=== PATIENT | female | born 1955 | race Hispanic/Latino ===

== ENCOUNTER 2021-12-26 18:19 | Emergency (ER) | payer OTHER, MEDICARE ==
[~2021-12-26] VITALS: Ht 162.6 cm; Wt 89.4 kg
[2021-12-26 18:53] LABS: BASOPHILS % (AUTO) 0.3 % (0.0-5.0); HEMATOCRIT 38.1 % (36-48); LYMPHOCYTES % (AUTO) 3.4 % (21.0-51.0); MEAN CORPUSCULAR HEMOGLOBIN 30.1 pg (27.0-33.0); MEAN CORPUSCULAR HGB CONC 33.3 g/dL (32.0-36.0); MEAN CORPUSCULAR VOLUME 90.3 fL (79-99); NEUTROPHILS % (AUTO) 87.7 % (40.0-77.0); PLATELET COUNT (AUTO) 186 K/uL (130-400); RED BLOOD CELL COUNT(AUTO) 4.22 MIL/uL (4.00-5.50); RED CELL DISTRIBUTION WIDTH 13.7 % (11.0-15.5)
[2021-12-26 19:01] LABS: CREATININE 0.9 mg/dL (0.5-1.5); POTASSIUM 3.9 mmol/L (3.5-5.1)
[2021-12-26 19:08] LABS: ALBUMIN 3.9 g/dL (3.5-5.0); TOTAL PROTEIN, SERUM 7.9 g/dL (6.0-8.3)
[2021-12-26 19:15] LABS: APPEARANCE,URINE CLEAR (CLEAR); BILIRUBIN,URINE NEGATIVE (NEGATIVE); COLOR,URINE YELLOW (YELLOW); GLUCOSE, URINE (UA) NEGATIVE (NEGATIVE); KETONES,URINE 15 mg/dL (NEGATIVE); LEUKOCYTE ESTERASE ,URINE NEGATIVE (NEGATIVE); NITRATE,URINE NEGATIVE (NEGATIVE); OCCULT BLOOD,URINE NEGATIVE (NEGATIVE); PROTEIN,URINE NEGATIVE (NEGATIVE)
[2021-12-26 19:48] LABS: ABG HCO3 23.7 mmol/L (21.0-28.0); ABG PCO2 32 mmHg (32-45)
[2021-12-26] MEDS ORDERED: AZITHROMYCIN 250 MG TABLET PO ONE (20:30)
[2021-12-26] MEDS ORDERED: CEFTRIAXONE 1G VIAL IVP ONE (20:30)
[2021-12-26 21:10] LABS: CRP QUANTITATIVE 15.4 mg/L (0.00-9.0)
[2021-12-26] MEDS ORDERED: AZIT250T9 PO (22:41)
[2021-12-26 22:52] VITALS: BP 126/70
== END 2021-12-26 23:09 | disposition home or self-care (01) ==
LOC: EDH 18:19
DX: U07.1 COVID-19 (principal); Z88.5 Allergy status to narcotic agent
CPT/HCPCS: 99285; 96374; 71045; 82947; 87635; 84484; 80053; 82803; 85025; 87804 ×2; 83605 ×2; 86140; 81003; 36415; 93005; 36600; 84132; 84295; 82435; 85018; C9803; J0696

== ENCOUNTER 2024-11-30 09:22 | Emergency (ER) | payer MEDICARE, MEDICAID ==
[~2024-11-30] VITALS: Ht 162.6 cm; Wt 83.9 kg
[~2024-11-30 09:22] MED LIST: AZIT250T9 PO
[2024-11-30] MEDS ORDERED: LORA10TA7 PO (09:31)
[2024-11-30] MEDS ORDERED: FLUT16H NS (09:31)
--- NOTE | 2024-11-30 09:32 | ERN ---
General Chief Complaint: Congestion Stated Complaint: CONGESTION, HEADACHE EXPOSED TO COVID Time Seen by MD: 09:24 Source: patient History of Present Illness Initial Comments Patient is a 68-year-old female coming in complaining of URI symptoms. Per p atient her whole family has COVID in his here for further evaluation. She does not have any fever or chills or shortness of breath. Allergies: Coded Allergies: codeine (Unverified Allergy, Unknown, 12/26/21) Home Meds Active Scripts Loratadine (Loratadine) 10 Mg Tablet, 1 TAB PO DAILY for allergy symptoms for 30 Days, #30 TAB 0 Refills Prov:TANVI SANTOS MD 11/30/24 Fluticasone Propionate (Flonase Nasal [place]) 50 Mcg/Actuation [place], 2 SPRAY NS DAILY, #16 GM 0 Refills Prov:TANVI SANTOS MD 11/30/24 Azithromycin (Azithromycin) 250 Mg Tablet, 250 MG PO DAILY, #4 TAB 0 Refills Prov:MICHELLE PEARSON MD 12/26/21 Past Medical History Past Medical History: Arthritis, High Cholesterol, UTI Past Surgical History: None Social History Social History: Negative ROS Dictation CONSTITUTIONAL: No chills, no fever, no weakness, no diaphoresis, no malaise. HEAD/FACE: No signs of trauma. EENT: No eye pain, no blurred vision, no tearing, no double vision, no ear pain, no ear discharge, no nose pain, no nasal congestion, no throat pain, no throat swelling, no mouth pain. RESPIRATORY: No cough, no orthopnea, no SOB, no stridor, no wheezing. CARDIOVASCULAR: No chest pain, no edema, no palpitations, no syncope. GASTROINTESTINAL/ABDOMINAL: No abdominal pain, no constipation, no diarrhea, no nausea, no vomiting. GENITOURINARY: No abnormal discharge, no dysuria, no frequent urination, no hematuria. No complaints of pain in the genitals. MUSCULOSKELETAL: No back pain, no gout, no joint pain, no joint swelling, no muscle pain, no muscle stiffness, no neck pain. INTEGUMENTARY: No change in color, no change in hair/nails, no dryness, no lesion, no lumps, no rash. NEUROLOGICAL/PSYCH: No anxiety, not depressed, no emotional problem, no headache, no numbness, no pre-existing deficit, no history of seizures, no tremors, no weakness. HEMATOLOGIC/LYMPHATIC: Not anemic, no history of blood clots, no apparent bleeding, no bruising, glands not swollen. All Systems Negative, Except as Noted. Physical Exam Physical Exam Dictation VITAL SIGNS: Reviewed. GENERAL APPEARANCE: Alert, oriented x3, no acute distress, obese. HEAD AND FACE: Non-traumatic. EYES: PERRL, pink conjunctivas, eyelid no trauma, anterior chamber clear. EARS: Pinnas intact and no signs of trauma or erythema. Ear canals clear and no discharge. TMs no erythema. NOSE: No discharge, no bleeding. OROPHARYNX: Mouth normal, teeth no caries, tongue pink. Pharynx clear, no erythema. Tonsils no exudates, no abscesses noted. Mucous membrane moist. NECK: Supple, non-tender, no thyromegaly, no masses, no JVD, no bruits. BREAST: Deferred. CHEST: No tenderness, no crepitus, no paradoxical movement, no retractions. LUNGS: Clear, well-ventilated, symmetric, no rales, no wheezing, no rhonchi, no stridor, good breath sounds bilaterally. HEART: Regular rate, regular rhythm, no murmur, no gallops. VASCULAR: No peripheral edema. ABDOMEN: Soft, positive bowel sounds, nondistended, no guarding, nontender, no rebound, no masses no hepatomegaly, no splenomegaly, no Dhillon's sign, no hernia s. RECTAL: Deferred. GENITAL: Deferred. NEUROLOGICAL: Normal speech, gross motor function intact, gross sensory function intact. MUSCULOSKELETAL: Neck nontender, full range of motion, back nontender, full range of motion. EXTREMITIES: Nontender, full range of motion. SKIN: Color pink, dry, no turgor, no rash, no lacerations, no abrasions, no contusions. LYMPHATICS: Deferred. Results Laboratory and Microbiology Labs Reviewed?: Yes MDM MDM: Differential diagnosis: COVID, flu, URI Rationale: Tests considered and ordered secondary to shared decision making in clude: Previous outside records reviewed: Old ER visits. Risk of complication and/or morbidity or mortality of patient management: None Medications-Per medication reconciliation Need for hospitalization: Patient does not meet criteria for hospitalization. Need for emergency major/minor surgery: No Patient is a 68-year-old female coming in complaining of URI symptoms. Patient states that her whole household has COVID in his here for further evaluation. She has had normal vital signs. Patient will be discharged with the COVID so she has been exposed to it. I did advised her appropriate follow up with PCp. ED Course Orders Procedure Category Date Status Time Dexamethasone 4mg/Ml PHA 11/30/24 In Process 1ml Vial (Dexametha 10:00 Current Medications Medications (Trade) Dose Ordered Sig/Delmis Route PRN Reason Start Time Stop Time Status Last Admin Dose Admin Dexamethasone Sodium Phosphate (dexaMETHasone 4MG/ML 1ML VIAL) 4 mg ONCE ONCE IM 11/30/24 10:00 11/30/24 10:01 11/30/24 09:51 Vital Signs Date Time Temp Pulse Resp B/P (MAP) Pulse Ox O2 Delivery O2 Flow Rate FiO2 11/30/24 09:24 99.0 98 18 129/89 99 Room Air 0 DX & DISP Disposition: Discharge Departure Impression: Primary Impression: COVID-19 virus infection Condition: Stable Scripts Loratadine (Loratadine) 10 Mg Tablet 1 TAB PO DAILY for allergy symptoms for 30 Days, #30 TAB 0 Refills Prov: TANVI SANTOS MD 11/30/24 Fluticasone Propionate (Flonase Nasal [place]) 50 Mcg/Actuation [place] 2 SPRAY NS DAILY, #16 GM 0 Refills Prov: TANVI SANTOS MD 11/30/24 Additional Instructions: FOLLOW-UP WITH PRIMARY CARE PROVIDER IN 1 TO 2 DAYS. TAKE MEDICATIONS DIRECTED HERE IN THE EMERGENCY ROOM. OKAY TO CONTINUE HOME MEDICATIONS UNLESS OTHERWISE DISCUSSED DURING YOUR VISIT IN THE EMERGENCY ROOM TODAY. RETURN TO YOUR NEAREST EMERGENCY ROOM IF SYMPTOMS WORSEN OR IF THERE IS NO IMPROVEMENT. CALL 911 IF YOU NEED IMMEDIATE ASSISTANCE. TAKE TYLENOL [id number] NEEDED AND IF NO CONTRAINDICATIONS ARE PRESENT. INCREASE ORAL HYDRATION. A WOUND CULTURE OR URINE CULTURE WAS ORDERED HERE IN THE EMERGENCY ROOM DEPARTMENT PLEASE FOLLOW-UP WITH PRIMARY CARE PROVIDER AND ADVISE THEM TO GET REPORTS FROM OUR FACILITY. IF YOU HAD ANY ELIZABETH WRAP/SPLINTS THAT WERE APPLIED HERE, PLEASE DO NOT REMOVE THEM UNTIL YOU SEE YOUR PRIMARY CARE OR SPECIALTY. Referrals: Referrals: KENNETH FERNANDES (PCP) Time of Disposition: 09:31 TANVI SANTOS MD Nov 30, 2024 09:31
[2024-11-30 10:05] VITALS: BP 127/89; PULSE 89; RESP 18; TEMP 99; O2SAT 99
== END 2024-11-30 10:08 | disposition home or self-care (01) ==
LOC: EDH 09:22
DX: U07.1 COVID-19 (principal); E78.00 Pure hypercholesterolemia, unspecified; M19.90 Unspecified osteoarthritis, unspecified site; Z88.5 Allergy status to narcotic agent; Z79.899 Other long term (current) drug therapy
CPT/HCPCS: 99283; 96372; J1100